=== PATIENT | female | born 1955 | race Caucasian/White ===

== ENCOUNTER 2018-07-19 11:30 | Inpatient (IN) | payer OTHER ==
[~2018-07-19] VITALS: Ht 170.2 cm; Wt 115.7 kg
[2018-07-19] MEDS ORDERED: LOSARTAN-HCTZ1 EACH PO (12:20)
[2018-07-19] MEDS ORDERED: LIPITOR20 MG PO (12:20)
[2018-07-19] MEDS ORDERED: PREVACID30 MG PO (12:20)
[2018-07-30] MEDS ORDERED: PNEU16DI2 IM (08:25)
[2018-07-30] MEDS ORDERED: ULTRACET PO (08:25)
[2018-07-30] MEDS ORDERED: COLACE100 MG PO (08:25)
== END 2018-07-30 10:24 | disposition home or self-care (01) | DRG 743 ==
LOC: EDSTATUS 11:45 → ADM 11:45 → OB/GYN 07-29 05:25 → O/R 07-29 05:25 → SURH 07-29 11:45 → OB/GYN 07-29 16:27 → SURH 07-29 17:00 → OB/GYN 07-30 10:24
PROVIDERS: ADMIT Obstetrics & Gynecology Gynecologic Oncology
PROC: 0UT74ZZ Resection of Bilateral Fallopian Tubes, Percutaneous Endoscopic Approach (ICD-10-PCS; 2018-07-29)
PROC: 0UT24ZZ Resection of Bilateral Ovaries, Percutaneous Endoscopic Approach (ICD-10-PCS; 2018-07-29)
PROC: 0DNW4ZZ Release Peritoneum, Percutaneous Endoscopic Approach (ICD-10-PCS; 2018-07-29)
PROC: 0UT94ZZ Resection of Uterus, Percutaneous Endoscopic Approach (ICD-10-PCS; principal; 2018-07-29 17:00)
DX: D25.1 Intramural leiomyoma of uterus (principal); D25.2 Subserosal leiomyoma of uterus; N83.292 Other ovarian cyst, left side; N83.291 Other ovarian cyst, right side